=== PATIENT | female | born 1950 | race Caucasian/White ===

== ENCOUNTER 2023-09-17 12:20 | Emergency (ER) | payer MEDICARE, OTHER, SELFPAY ==
[2023-09-17 12:29] VITALS: BP 184/145
[2023-09-17 13:02] VITALS: BP 162/87; BMI 24.1
[2023-09-17 13:32] LABS: % Basophils 0.3 % (0-2); % Eosinophils 0.3 % (0-6); % Immature Granulocytes 0.2 % (0-0.5); % Lymphocytes 15.4 % (20.5-51.1); % Monocytes 9.6 % (1.7-9.3); % Neutrophils 74.2 % (42.2-75.2); Absolute Lymphocytes 0.9 10^3/uL (1.2-3.4); Absolute Monocytes 0.6 10^3/uL (0.1-0.6); Absolute Neutrophils 4.4 10^3/uL (1.4-6.5); Hematocrit 41.5 % (37.0-47.0); Hemoglobin 14.3 g/dL (12.0-16.0); Mean Corp Hgb Conc. 34.5 g/dL (33.0-37.0); Mean Corpuscular Hgb 31.3 pg (27.0-31.0); Mean Corpuscular Volume 90.8 fL (81.0-99.0); Mean Platelet Volume 9.4 fL (7.4-10.4); Nucleated Red Blood Cells % 0 %; Platelet Count 258 10^3/uL (130-400); Red Blood Cell Count 4.57 10^6/uL (4.20-5.40); Red Cell Dist. Width 12.3 % (11.5-14.5); White Blood Cell Count 5.9 10^3/uL (4.8-10.8)
[2023-09-17 13:44] LABS: ALT (SGPT) 22 U/L (0-35); AST (SGOT) 24 U/L (14-36); Albumin 4.9 g/dl (3.5-5.0); Alkaline Phosphatase 95 U/L (38-126); Blood Urea Nitrogen 8 mg/dl (7-17); Calcium 10.4 mg/dl (8.4-10.2); Carbon Dioxide 24 mmol/L (22-30); Chloride 105 mmol/L (98-107); Estimated Creatinine Clearance 70 ml/min; Glucose 107 mg/dl (70-99); Lipase 234 U/L (23-300); Potassium 4.1 mmol/L (3.5-5.1); Sodium 135 mmol/L (135-145); Total Protein 7.9 g/dl (6.3-8.2); eGFR > 60.00
--- NOTE | 2023-09-17 13:49 | ED.GENMED ---
History of Present Illness
General
Chief Complaint: Abdominal Pain
Source: patient
Exam Limitations: none
Time Seen by Provider: 09/17/23 13:04
Nursing documentation reviewed up to this point in time: agreed with
Travel History
Have you had any contact with someone who has COVID-19?: No
Do you have any symptoms of coronavirus? Fever > 100 degrees, chills, cough, shortness of breath, sore throat, loss of taste or smell, muscle aches, or headache?: No
History of Present Illness
History of Present Illness:
Patient is a 72-year-old female who presented to the ER for evaluation of right upper quadrant pain and right back pain. She reports she started with this pain on , 6 days ago. She was hospitalized Friday and discharged Friday, yesterday
at [facility]. She reports they looked at her gallbladder and told her it was mildly distended and she was discharged. While she was in the hospital the night prior to discharge she reports she noticed a rash to the right upper with the
nurse did not think it was shingles. She was not seen by physician for the rash prior to d/c she was however discharged on gabapentin. She has been taking gabapentin 100 g every 12 hours without relief. Today sister noticed that rash is
spreading to the right back. She continues to complain of pain to the right upper abdomen and right back area.
Patient denies any nausea vomiting fever chills. Patient denies any shortness of breath/chest pain.
Review of Systems
Review of Systems
Allergies reviewed?: Yes
All Other Systems: ROS reviewed and negative except as documented in HPI and ROS
Constitutional: Reports no symptoms; Denies fever, fatigue or chills
Respiratory: Reports no symptoms
Cardiac: Reports no symptoms
ABD/GI: Reports abdominal pain (right sided abd pain radiating to right back )
Musculoskeletal: Reports back pain (right sided back pain )
Skin: Reports rash (rash to right abdomen and right back )
Neurological: Reports no symptoms
Psychiatric: Reports no symptoms
Phy Exam
General Physical Exam
General Presentation: no apparent distress
General age: appears stated age
General Skin: warm and dry
General Habitus: normal
General Mental: alert
General Hydration: appears well hydrated
Cardiovascular Exam
Cardiovascular Exam: regular rate/rhythm, no murmur and normal peripheral pulses
Neurological Exam
Neurological Exam: alert
Skin Exam
Skin Exam: normal color, warm/dry and other (Positive scattered red rash to right abd /back, right back has vesicle appearance)
Psychiatric Exam
Psychiatric Exam: normal mood/affect
Course
Orders/Labs/Results
Orders:
Orders
09/17/23 13:17
Complete Blood Count/With Diff Urgent
Comprehensive Metabolic Panel Urgent
Lipase Urgent
09/17/23 13:49
Gabapentin [Neurontin] 300 mg PO NOW STA
Ketorolac [Toradol] 15 mg IV NOW STA
09/17/23 14:20
US Abdomen Complete/Upper Urgent
Comment:
Reason For Exam: upper abd pain
09/17/23 15:59
Lidocaine [Lidocaine 4% Patch] 1 patch TOPICAL NOW STA
Morphine Sulfate 2 mg IV NOW STA
09/17/23 17:39
Tramadol HCl [Ultram] 50 mg PO NOW STA
Valacyclovir HCl [Valtrex] 1,000 mg PO NOW STA
09/17/23 17:41
Vital Signs- Treatment ONCE
Frequency: Once
Abnormal Lab Results
09/17/23
13:17
MCH 31.3 H pg
(27.0-31.0)
Absolute Lymphs (auto) 0.9 L 10^3/uL
(1.2-3.4)
Lymphocytes % 15.4 L %
(20.5-51.1)
Monocytes % 9.6 H %
(1.7-9.3)
Glucose 107 H mg/dl
(70-99)
Calcium 10.4 H mg/dl
(8.4-10.2)
09/17/23 13:17
09/17/23 13:17
Vital Signs
Initial and Last Documented VS:
Initial Vital Signs
Temp Pulse Resp BP Pulse Ox
98.1 F 86 18 184/145 99
09/17/23 12:29 09/17/23 12:29 09/17/23 12:29 09/17/23 12:29 09/17/23 12:29
Last Documented Vital Signs
Temp Pulse Resp BP Pulse Ox
98.1 F 86 18 182/88 99
09/17/23 12:29 09/17/23 12:29 09/17/23 12:29 09/17/23 18:00 09/17/23 18:15
Production Stage Manager consulted with Physician
Production Stage Manager consulted with physician?: Yes
Name of Physician Consulted: shawn
MDM/Problems Addressed
Differential Diagnosis Includes:
Not limited to less likely biliary colic, shingles
MDM/Problems Addressed:
Symptoms are consistent with zoster. Patient was hospitalized at [place] as documented for right upper quadrant pain and right back pain however while they are the night prior to discharge she did develop a rash to her right abdomen. This rash is
visualized by me on her right abdomen and on her back consistent with shingles. She was concerned about a questionable abnormality and distention of her gallbladder on the ultrasound that she had at [place]. I did repeat ultrasound which was
normal here in the ER. She is afebrile with a normal white count stable hemoglobin and normal labs including normal LFTs.
Will prescribe antivirals given patient's age. She was given gabapentin prior to being discharged however has never taken 100 mg every 12 hours which is not I did discuss with patient she may increase to 300 mg as tolerated every 8 hours.
3392:Patient was kept here for discomfort. She was given a dose of IV morphine. On reexam she feels better is not sleepy. She is awake alert in no acute distress but still reports still has discomfort .
Son at bedside to take pt home.
will give 1 dose of tramadol now and 1 dose of Valtrex with prescription sent to pharmacy. I discussed with patient however to closely follow family doctor in the next 2 days for reevaluation and to return if any worsening of symptoms.
Patient educated on gabapentin she may increase this and she is only to take tramadol if needed
Chronic conditions affecting care:
htn
*Radiology
Radiology exam reviewed: radiology read reviewed
*Pulse Oximetry
Patient hypoxic: no
*Critical Care Note
Total Time (30-74mins, 75-104mins- exclusive of procedures): Not Applicable
ED Attending Note
-
Portions of this chart may have been created with voice recognition software.� Occasional wrong word or��sound alike� substitutions may have occurred due to the inherent limitations of voice recognition software.
Discharge Plan
Departure
Patient Disposition: Home (Routine Discharge)
Date of Disposition: 09/17/23
Time of Disposition: 17:41
Patient with high blood pressure during this ER visit?: Yes
Condition: Fair
Covid-19: Not Applicable
Discharge Problem:
Herpes zoster
Instructions: Shingles (DC)
Prescriptions:
New
valacyclovir [Valtrex] 1 gram tablet
1,000 mg PO TID Qty: 30 0RF
lidocaine 5 % adhesive patch,medicated
1 patch topical DAILY Qty: 15 0RF
Rx Instructions:
Remove after 12 hours
tramadol 50 mg tablet
50 mg PO Q8H PRN (Reason: Pain) Qty: 10 0RF
Referrals:
NONE,* [Active] -
Activity Restrictions/Additional Instructions:
As discussed your symptoms are consistent with shingles. You were started on valacyclovir (antiviral to treat shingles )and given first dose here in the ER.
As discussed you may slowly increase the gabapentin as tolerated to up to 300 mg every 8 hours as needed. This will cause drowsiness no driving or drinking alcohol while taking this medication. A prescription for lidocaine patch was also sent to
your pharmacy. use as directed to affected area once a day remove after 12 hours. You may take pain medication which was sent to pharmacy as needed. Please follow-up with the next 1 to 2 days for further reevaluation return if any worse including
worsening pain.
Interventions
Interventions:
*Risk Screen - Suicide Last Done: 09/17/23 12:29
*General Assessment Last Done: 09/17/23 13:02
*Neglect/Abuse Screening Last Done: 09/17/23 12:29
ED- Fall Risk Assessment Last Done: 09/17/23 13:02
*ED COVID-19 Vaccine History Last Done: 09/17/23 12:29
*Nursing Disposition Last Done: 09/17/23 18:40
QV-Cbynbm-Crsiwpimvz Assessment Last Done: 09/17/23 13:02
Discharge Date and Time
Discharge Date/Time: 09/17/23 18:41
Print Language: SLOVENIAN
[2023-09-17] MEDS: TORADOL 15 MG IV (13:59)
[2023-09-17] MEDS: NEURONTIN 300 MG PO (13:59)
[2023-09-17 14:00] VITALS: BP 180/88
[2023-09-17 16:00] VITALS: BP 182/86
[2023-09-17] MEDS: LIDOCAINE 4% PATCH 1 PATCH TOPICAL (16:04)
[2023-09-17] MEDS: MORPHINE SULFATE 2 MG IV (16:06)
[2023-09-17 18:00] VITALS: BP 182/88
[2023-09-17] MEDS: ULTRAM 50 MG PO (18:26)
[2023-09-17] MEDS: VALTREX 1000 MG PO (18:26)
== END 2023-09-17 18:41 | disposition home or self-care (01) ==
LOC: EMR 12:20
PROVIDERS: EMERGENCY PHYSICIAN Emergency Medicine; FAMILY PHYSICIAN Family Medicine Sports Medicine
DX: B02.9 Zoster without complications (principal); I10 Essential (primary) hypertension
CPT/HCPCS: 99284; 96374; 76700; 80053; 83690; 85025

== ENCOUNTER 2024-06-22 14:42 | Inpatient (IN) | payer MEDICARE, OTHER, SELFPAY ==
[2024-06-22] VITALS (7 sets, daily range): BP systolic 106–182; BP diastolic 67–91; BMI 24.2; BMI 23.8
[2024-06-22 09:28] LABS: % Eosinophils 1.2 % (0-6); % Immature Granulocytes 0.2 % (0-0.5); % Lymphocytes 26.2 % (20.5-51.1); % Monocytes 7.2 % (1.7-9.3); % Neutrophils 64.2 % (42.2-75.2); Absolute Basophils 0.1 10^3/uL (0-0.2); Absolute Eosinophils 0.1 10^3/uL (0-0.7); Absolute Lymphocytes 1.3 10^3/uL (1.2-3.4); Absolute Monocytes 0.4 10^3/uL (0.1-0.6); Absolute Neutrophils 3.3 10^3/uL (1.4-6.5); Hemoglobin 14.1 g/dL (12.0-16.0); Mean Corp Hgb Conc. 34.4 g/dL (33.0-37.0); Mean Corpuscular Hgb 30.8 pg (27.0-31.0); Mean Corpuscular Volume 89.5 fL (81.0-99.0); Mean Platelet Volume 9.3 fL (7.4-10.4); Nucleated Red Blood Cells % 0 %; Platelet Count 265 10^3/uL (130-400); Red Blood Cell Count 4.58 10^6/uL (4.20-5.40); Red Cell Dist. Width 11.9 % (11.5-14.5); White Blood Cell Count 5.1 10^3/uL (4.8-10.8)
[2024-06-22 09:49] LABS: ALT (SGPT) 26 U/L (0-35); AST (SGOT) 25 U/L (14-36); Albumin 4.6 g/dl (3.5-5.0); Alkaline Phosphatase 95 U/L (38-126); Blood Urea Nitrogen 10 mg/dl (7-17); Calcium 9.9 mg/dl (8.4-10.2); Carbon Dioxide 28 mmol/L (22-30); Chloride 105 mmol/L (98-107); Glucose 97 mg/dl (70-99); Lipase 133 U/L (23-300); Potassium 3.9 mmol/L (3.5-5.1); Sodium 141 mmol/L (135-145); Total Bilirubin 0.7 mg/dl (0.2-1.3); Total Protein 7.3 g/dl (6.3-8.2); eGFR > 60.00
--- NOTE | 2024-06-22 10:19 | ED.GENMED ---
History of Present Illness
General
Chief Complaint: Abdominal Pain
Source: patient
Time Seen by Provider: 06/22/24 10:02
History of Present Illness
History of Present Illness:
73-year-old female with past medical history of hypertension and 2 previous episodes of pancreatitis presenting to the emergency department for evaluation of epigastric and right upper quadrant abdominal pain that began over the course of 1 week,
waxes and wanes, seems to be improved when she is up and moving, worse when laying flat or laying on her left side accompanied with some mild nausea. Patient states that the pain does feel somewhat similar to previous episodes of pancreatitis which
she states are due to a duct anatomical issue but no procedures or treatments other than pain control in the past. Patient denies any fevers, chills, rigors, urinary symptoms or bowel changes. She also denies any chest pain or shortness of breath.
Patient has not attempted any medications for relief at home. No other concerns presently
Past History
Past History
ED Past Medical History: HTN and Other (Pancreatitis)
ED Past Surgical History: Tonsilectomy
Social History
Tobacco: Non-smoker
Alcohol: None
Drug: None
Personal:
Living: with family
Review of Systems
Review of Systems
All Other Systems: ROS reviewed and negative except as documented in HPI and ROS
Phy Exam
Physical Exam
Physical Exam:
GENERAL: Alert , in no apparent distress
EYE: clear conjunctiva b/l
HEAD: NCAT
ENT: o/p clr, mmm.
CARDIAC: Regular rate and rhythm .
LUNGS: Clear breath sounds bilaterally, no acute respiratory distress, no wheezes/rales/rhonchi
ABDOMEN: Soft, epigastric and right upper quadrant tenderness that radiates towards the right flank, no r/g
NEUROLOGICAL: Alert and oriented
SKIN: Warm and dry, skin intact.
MUSCULOSKELETAL: No edema, well perfused.
PSYCH: Normal and appropriate interaction.
Scores
Heart Failure Risk
Heart Failure Risk Score: Not Applicable
Heart Score for Chest Pain Patients
STEMI patient?: Not applicable
Withdrawal Assessment of Alcohol
Withdrawal Assessment Completed?: Not applicable
Course
Orders/Labs/Results
Orders:
Orders
06/22/24 09:01
Electrocardiogram (*1) Urgent
Reason for Study: Abdominal Pain
EKG- Treatment ONCE
06/22/24 09:08
Complete Blood Count/With Diff Urgent
Comprehensive Metabolic Panel Urgent
Lipase Urgent
06/22/24 10:16
CT Abd/pelvis W Iv Cont Urgent
Comment:
Reason For Exam: upper abd pain, nausea
Ketorolac [Toradol] 30 mg IV NOW STA
Ondansetron Injectable [Zofran] 4 mg IV NOW STA
06/22/24 10:20
Add On- LAB Urgent
Tests Added?: troponin
06/22/24 11:28
Troponin I Urgent
Urinalysis Reflex To Culture Urgent
Date Specimen was Collected: 06/22/24
Time Specimen was Collected: 11:26
Urine Microscopic Reflex Cult Urgent
Urine Culture Urgent
ISAI Source: U
Specimen Description:
Date Specimen was Collected: 06/22/24
Time Specimen was Collected: 11:26
06/22/24 13:08
HYDROmorphone [Dilaudid] 0.5 mg IV NOW STA
Ondansetron Injectable [Zofran] 4 mg .ROUTE .STK-MED ONE
Ondansetron Injectable [Zofran] 4 mg IV NOW STA
06/22/24 13:09
HYDROmorphone [Dilaudid] 0.5 mg .ROUTE .STK-MED ONE
06/22/24 14:05
HYDROmorphone [Dilaudid] 0.5 mg IV NOW STA
US Abdomen Complete/Upper Urgent
Comment:
Reason For Exam: upper abd pain
06/22/24 14:07
CefTRIAXone [Rocephin] 1,000 mg IV NOW STA
06/22/24 14:21
Admit/Transfer Patient As Directed
Co-Sign Provider:
Level of Care: Inpatient admission
Assign to:: Medical/Surgical
Physician / Group: samantha alberto
Diagnosis: abdominal pain
Reason for Hospitalization: abdominal pain
Expected length of stay greater than two midnights?: Yes
ELOS- Estimated Length of Stay in days: 3
I certify the patient meets the requirements for IP care: Yes
PRN Pain Medication Management As Directed
May give lesser potent ordered pain med per pt: Yes
preference::
Protocol:: Medication orders for pain may be administered in a
manner that supports deferring to patient preference
when the pt is:
- Requesting an ordered lesser potent pain medication.
Least to most potent pain medications are defined
as: acetaminophen < NSAID < tramadol < opioids
(morphine, oxycodone, hydromorphone).
- Requesting a lesser dose of the same medication IF
ORDERED.
- Requesting a less intrusive route of administration
if both routes are prescribed by the provider (PO <
IV).
06/22/24 14:22
Code Status As Directed
Resuscitation Status: Full Code
06/22/24 14:39
Sterile Water [Sterile Water For Injection] 10 ml .ROUTE .STK-MED ONE
Abnormal Lab Results
06/22/24
11:28
Ur Occult Blood Reflex Trace A
(Negative)
Leukocyte Esterase Rfl 1+ A
(Negative)
Urine WBC (Reflex) 11-15 A /HPF
(0-5)
Urine Bacteria (Reflex) Few A
(Negative)
06/22/24 09:08
06/22/24 09:08
Vital Signs
Initial and Last Documented VS:
Initial Vital Signs
Temp Pulse Resp BP Pulse Ox
98.3 F 73 16 144/89 98
06/22/24 08:55 06/22/24 08:55 06/22/24 08:55 06/22/24 08:55 06/22/24 08:55
Last Documented Vital Signs
Temp Pulse Resp BP Pulse Ox
98.3 F 65 16 182/82 95
06/22/24 08:55 06/22/24 15:00 06/22/24 15:00 06/22/24 15:00 06/22/24 15:00
MDM/Problems Addressed
Differential Diagnosis Includes:
GERD/gastritis, pancreatitis, cholecystitis, choledocholithiasis, renal/ureteral colic, atypical ACS presentation, muscular etiology
MDM/Problems Addressed:
73-year-old female presenting to the ER with 1 week of epigastric to right upper quadrant abdominal pain, unchanged today however not improving. Feels similar to previous episodes of pancreatitis. Pain pretty clearly reproducible within the
epigastrium and right upper quadrant. Labs have been initiated upon arrival which are all reassuring. Normal liver function tests and lipase. No leukocytosis. Patient is afebrile. Patient had an ultrasound of her abdomen done in September 2023
which did not show any abnormalities, no stones within the gallbladder and a normal common bile duct. My suspicion for gallbladder pathology is quite low given this recent ultrasound study combined with patient's unremarkable labs. Will obtain a
CT scan for further evaluation. Toradol and Zofran ordered for symptomatic relief. Reassessment following
Chronic conditions affecting care: Other (To previous episodes of pancreatitis)
*Radiology
Radiology exam reviewed: radiology read reviewed
*Pulse Oximetry
Patient hypoxic: no
*Critical Care Note
Total Time (30-74mins, 75-104mins- exclusive of procedures): Not Applicable
Data Reviewed
Review of Other/Old Records Reveals: Labs, Records and Radiology Studies
Patient Management
Discussion with other providers: Hospitalist
Escalation/DeEscalation of care consider admission/obs:
Patient's urinalysis with 11-15 WBCs and 1+ leukocyte. Urine culture sent. Will likely treat for UTI. CT scan appears without any acute findings. There is noted fatty liver and possible minimal hepatic cirrhosis. Gallbladder distention without
any wall thickening or pericholecystic inflammatory changes. Diffuse pancreatic ductal dilatation. Other chronic findings discussed with patient and printout of report was given to the patient as well. I still question possible chronic
pancreatitis as potential cause for her pain. Patient did note some improvement of pain with Toradol down to a 6 however pain returning and back now to a 9 out of 10. Half milligram of Dilaudid and additional Zofran ordered for symptomatic relief.
Reassessment following.
Despite Dilaudid patient still with considerable pain and does not feel comfortable to be discharged home. Additional dose of Dilaudid ordered. IV Rocephin ordered for possible urinary tract infection. Will admit to hospitalist for further
evaluation and treatment of intractable abdominal pain.
ED Attending Note
-
Portions of this chart may have been created with voice recognition software.� Occasional wrong word or��sound alike� substitutions may have occurred due to the inherent limitations of voice recognition software.
Discharge Plan
Departure
Patient Disposition: Admit
Date of Disposition: 06/22/24
Time of Disposition: 14:07
Presentation/result/management discussed w/ accepting MD/DO: Hospitalist
Discharge Problem:
Chronic pancreatitis, Abdominal pain, UTI (urinary tract infection)
Interventions
Interventions:
*Risk Screen - Suicide Last Done: 06/22/24 08:55
*Neglect/Abuse Screening Last Done: 06/22/24 08:55
QM-Swfuth-Dxggyotlim Assessment Last Done: 06/22/24 11:30
[2024-06-22] MEDS: TORADOL 30 MG IV (11:20)
[2024-06-22] MEDS: ZOFRAN 4 MG IV ×3 (11:20→17:47)
[2024-06-22 11:35] LABS: Urine Albumin Trace (Neg - Trace); Urine Bilirubin Negative (Negative); Urine Character Clear (Clear); Urine Color Yellow; Urine Glucose Negative (Negative); Urine Ketone Negative (Negative); Urine Leukocyte 1+ (Negative); Urine Nitrite Negative (Negative); Urine Occult Blood Trace (Negative); Urine Specific Gravity 1.025 (<1.030); Urine Urobilinogen Negative (Neg - 1+)
[2024-06-22 11:51] LABS: Urine Mucus Moderate
[2024-06-22 11:52] LABS: Urine Bacteria Few (Negative); Urine Calcium Oxalate Crystals Present; Urine Red Blood Cell 0-2 /HPF (0-2)
[2024-06-22 12:02] LABS: Troponin I < 0.012 ng/ml
[2024-06-22] MEDS: DILAUDID 0.5 MG IV ×2 (13:12→14:44)
--- NOTE | 2024-06-22 14:08 | HPS.HSE ---
Addendum entered and electronically signed by Herber Rose MD 06/22/24 18:55:
As per ACCESS TECH, surgery requests initial eval with GI prior to consulting them
Addendum entered and electronically signed by Herber Rose MD 06/22/24 18:50:
Pain, usually exacerbated by dietary, has been ongoing for 6 months. Was evaluated at [facility] with plan for HIDA scan, but was cancelled for unclear reasons and pt was dc. Has continued to have RUQ pain, as per pt has been virtually unable to eat
since 06/09
Pt seen independently and agree with note by ACCESS TECH
Lungs clear
CV reg
Abd soft, tender [place]
GB US: New pancreatic ductal dilatation. Etiology unknown. Nonurgent MRCP recommended when the patient is able. The patient is scheduled for a HIDA scan.
Lipase 133
Imp:recurrent abd pain with concern for acalculous cholecystitis
P:GI and Gen Surg consults
HIDA scan (?with [facility])
Original Note:
Family Physician
-
Family Physician: Luis Fernando Jeong
Chief Complaint
-
right upper quadrant pain
History of Present Illness
73-year-old female with past medical history of hypertension and 2 previous episodes of pancreatitis presenting to the emergency department for evaluation of epigastric and right upper quadrant abdominal pain that began for more than a week. waxes
and wanes, seems to be improved when she is up and moving, worse when laying flat or laying on her left side accompanied with some mild nausea. patient denied any vomiting or diarrhea. stated poor appetite for more than a week. denied fever. stated
chills. denied chest pain, sob. denied dysuria or hematuria.
CT with the impression of 1. Mild diffuse hepatic steatosis, mild diffuse intrahepatic biliary dilatation, and suspected minimal hepatic cirrhosis.
2. Gallbladder distention without wall thickening or pericholecystic inflammation.
3. Mild diffuse pancreatic ductal dilatation.
4. Multiple bilateral parapelvic renal cysts.
5. Moderate to severe diverticulosis in the sigmoid colon.
6. Moderate-sized cystocele.
7. Mild cardiomegaly.
8. 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
patient received ceftriaxone, Dilaudid, Toradol, Zofran in ER. admitting for further management.
Medical History
Past Medical History
Past Medical History: Reports None
Additional Past Medical History:
HTN
pancreatitis
Past Surgical History: Reports None
Social History
Tobacco: Non-smoker
Alcohol: None
Drug: None
Family History
Family History: Not pertinent
Allergies / Home Medications
Allergies reflects when Allergies were last updated in [facility].
Home Medications with original date entered in [facility]
Allergy/Medication List:
Allergies
Allergy/AdvReac Type Severity Reaction Status Date / Time
azilsartan Allergy Mild Rash Verified 06/22/24 08:54
cortisone Allergy Mild Unknown Verified 06/22/24 08:54
glutamine [From Endari] Allergy Mild Unknown Verified 06/22/24 08:54
latex Allergy Mild Unknown Verified 06/22/24 08:54
nebivolol Allergy Mild Nausea / Verified 06/22/24 08:54
Vomiting
sulfamethoxazole Allergy Mild Nausea / Verified 06/22/24 08:54
[From Bactrim] Vomiting
trimethoprim [From Bactrim] Allergy Mild Nausea / Verified 06/22/24 08:54
Vomiting
amoxicillin Allergy Rash Verified 06/22/24 08:54
Review of Systems
-
Constitutional: Reports No Symptoms
EENT: Reports No Symptoms
Respiratory: Reports No Symptoms
Cardiac: Reports No Symptoms
Abdomen/GI: Reports Abdominal Pain and Nausea
: Reports No Symptoms
Musculoskeletal: Reports No Symptoms
Skin: Reports No Symptoms
Neurological: Reports No Symptoms
Endocrine: Reports No Symptoms
Hematologic/Lymphatic: Reports No Symptoms
Psych: Reports No Symptoms
Physical Exam
Vital Signs
Vital Signs
Temp Pulse Resp BP Pulse Ox
98.3 F 76 19 176/80 98
06/22/24 08:55 06/22/24 13:15 06/22/24 13:15 06/22/24 13:04 06/22/24 13:15
Physical Exam
General: Well Developed, Well Nourished and No Apparent Distress
HEENT: NormoCephalic, Moist mucous membranes and Atraumatic
Respiratory: Clear
Cardiac: S1/S2 and Regular Rhythm; No Murmur or Rub
GI: Soft, Non Tender, Non Distended and Normal Bowel Sounds; No Organomegaly
Rectal: Deferred by Provider
Musculoskeletal: No Clubbing, No Cyanosis and No Edema
Skin: No Rash
Neuro: AO x 3 and Nonfocal/grossly intact
Psych: Calm
Laboratory Results
-
06/22/24 09:08
06/22/24 09:08
Laboratory Results
Total Bilirubin 0.7 mg/dl (0.2-1.3) 06/22/24 09:08
AST 25 U/L (14-36) 06/22/24 09:08
ALT 26 U/L (0-35) 06/22/24 09:08
Alkaline Phosphatase 95 U/L (38-126) 06/22/24 09:08
Troponin I < 0.012 ng/ml 06/22/24 11:28
Lipase 133 U/L (23-300) 06/22/24 09:08
Data Reviewed
-
CT Scan: Report Reviewed by me
Lab Data: Labs Reviewed by me
Impression/Plan
-
#intractable abdominal pain concern for calculous cholecystitis
#chronic pancreatitis
-CT with the impression of Mild diffuse hepatic steatosis, mild diffuse intrahepatic biliary dilatation, and suspected minimal hepatic cirrhosis.
2. Gallbladder distention without wall thickening or pericholecystic inflammation.
3. Mild diffuse pancreatic ductal dilatation.
4. Multiple bilateral parapelvic renal cysts.
5. Moderate to severe diverticulosis in the sigmoid colon.
6. Moderate-sized cystocele.
7. Mild cardiomegaly.
8. 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
-US of abdomen pending
-HIDA scan
-clear liquid diet
-Dilaudid and Zofran prn for pain,nausea
-Gi consulted
#essential HTn
-verapamil continued
#DVT prophylaxis
#CODE status
[2024-06-22] MEDS: ROCEPHIN 1000 MG IV (14:44)
--- NOTE | 2024-06-22 16:30 | CON.GI ---
Addendum entered and electronically signed by Antonia Warren MD 06/22/24 18:52:
I saw and examined the patient.
The RN DELIVERY or PA's note was reviewed and I agree with the note.
Comment: 73-year-old female with history of shingles, history of recurrent pancreatitis episodes who follows up with Dr. Garsia at [facility] presenting with right upper quadrant discomfort going on for the last several days. She has chronic right
upper quadrant discomfort, follows at [facility] and has had multiple tests as per patient without any particular etiology noted. She was supposed to have the HIDA scan but that was canceled subsequently. She reports the pain is dull discomfort in
the right upper quadrant, could be exacerbated after food, has been having nausea with this particular episode but not on regular basis. No trouble swallowing. No heartburn. No constipation, diarrhea, blood in the stool or black stool. No NSAID
use.
In the ER, CMP and CBC and lipase were within normal range.
Abdominal ultrasound showing mild pancreatic ductal dilation, CT scan of the abdomen and pelvis with IV contrast only showing mild diffuse hepatic steatosis ,mild diffuse intrahepatic ductal dilation, gallbladder distention without any wall
thickening. Mild to diffuse pancreatic ductal dilation, diverticulosis, moderate left periuterine and periadnexal varices. Moderate fecal material noted in the cecum and proximal ascending colon.
As per patient's son, she was told that she has pancreatic divisum on EUS that could have caused the pancreatitis and the last episode of pancreatitis was August 2023 and nothing since. They are not aware of any other findings on the endoscopy
ultrasound other than the pancreatic divisum,.
He reports having colonoscopy at [facility] 5 years ago unremarkable as per patient.
-Right upper quadrant abdominal discomfort of unclear etiology. Chronic and intermittent,
Normal LFTs and lipase and no evidence of acute cholecystitis or pancreatitis on imaging.
no reflux symptoms to suggest acid reflux or ulcer disease
She is due to get a HIDA scan which is scheduled for tomorrow. Will follow-up on that.
Patient does have some moderate amount of stool in the cecum and right colon, she reports that she does not feel constipated and refuses to believe that that is causing any of the abdominal discomfort.
-History of pancreatic divisum and pancreatitis
no evidence of pancreatitis on imaging and lipase is within normal range.
Mild pancreatic duct and bile duct dilation noted on imaging, she did have endoscopy ultrasound with Dr. Matty Garsia at [facility] about 6 months ago and the only positive finding was a pancreatic divisum.
She is scheduled for an MRI with contrast at [facility] in a month, suggested keeping up with that appointment.
Will follow-up on the above testing
Original Note:
Consultation
-
Date/Time Consultation Requested: 06/22/24 1600
Date/Time Consultation Performed: 06/22/24 161
Requesting Provider: Dr. Rose
Performing Provider: Dr. Warren/SARAVANAN Sanchez
Reason for Consultation: RUQ pain
Medical History
Chief Complaint / HPI
Chief Complaint: RUQ pain
History of Present Illness:
73-year-old female with past medical history hypertension, pancreatitis followed by Dr. 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
intermittent right-sided abdominal discomfort followed by GI at [facility] who presents to the emergency room with right upper quadrant pain that she states is dull, intermittent, lying on her left side can provoke this, she is able to eat and drink,
no vomiting. When the pain becomes really bad she can sometimes have some nausea. She denies any fevers, chills, melena, acholic stools, bilirubinuria, dysphagia or odynophagia. No early satiety or unintentional weight loss. She does not smoke.
She does not drink any alcohol. She does not take any NSAIDs. She has routine EGD and colonoscopies. She states she is due for her next colonoscopy in 2 years. She does have a history of colon polyps. She states she is due for an MRI next
month. She is weaning herself off of gabapentin for history of neuropathic pain from shingles diagnosed in September 2023. This was in the right upper quadrant and right flank area. She was also on tramadol prior. She is currently off of this as
well. She does state that she was sent for a second opinion at [facility] for her intermittent right upper quadrant discomfort by Brooke LAWRENCE. She states that this pain is different from her pancreatitis pain but somewhat similar, different from
her shingles pain. WBC 5.1, hemoglobin 14.1, hematocrit 41.0, platelets 265, sodium 141, potassium 3.1, chloride 105, CO2 28, BUN 10, creatinine 0.7, glucose 97, total bilirubin 0.7, AST 25, ALT 26, alk phos 95
Past Medical History
Past Medical History: HTN and Other (Pancreatitis, colon polyp, shingles)
Past Surgical History: Other (Endoscopic ultrasound)
Social History
Tobacco: Non-Smoker
Alcohol: None
Drug: None
Family History
Family History: Other (Father history of gastric cancer, no other family history of gastrointestinal malignancies)
Allergies / Home Medications
Allergy/AdvReac Type Severity Reaction Status Date / Time
azilsartan Allergy Mild Rash Verified 06/22/24 08:54
cortisone Allergy Mild Unknown Verified 06/22/24 08:54
glutamine [From Endari] Allergy Mild Unknown Verified 06/22/24 08:54
latex Allergy Mild Unknown Verified 06/22/24 08:54
nebivolol Allergy Mild Nausea / Verified 06/22/24 08:54
Vomiting
sulfamethoxazole Allergy Mild Nausea / Verified 06/22/24 08:54
[From Bactrim] Vomiting
trimethoprim [From Bactrim] Allergy Mild Nausea / Verified 06/22/24 08:54
Vomiting
amoxicillin Allergy Rash Verified 06/22/24 08:54
�Medication �Instructions �Recorded
cholecalciferol (vitamin D3) 25 25 mcg PO DAILY 06/22/24
mcg (1,000 unit) tablet (Vitamin
D3)
gabapentin 100 mg capsule 200 mg PO HS 06/22/24
verapamil 240 mg tablet,extended 240 mg PO HS 06/22/24
release
vitamin B complex 1 tab PO DAILY 06/22/24
Review of Systems
-
All other systems: A 12 pt ROS was Negative except as stated above in HPI
Vital Signs
Temp Pulse Resp BP Pulse Ox
98.3 F 65 16 182/82 95
06/22/24 08:55 06/22/24 15:00 06/22/24 15:00 06/22/24 15:00 06/22/24 15:00
Physical Exam
Exam
General: No Apparent Distress
HEENT: Anicteric
Respiratory: Clear
Cardiac: Regular Rhythm
GI: Soft, Non Tender, Non Distended and Normal Bowel Sounds
Skin: Warm
Neuro: AO x 3
Psych: Calm
Results
WBC 5.1 10^3/uL (4.8-10.8) 06/22/24 09:08
Hgb 14.1 g/dL (12.0-16.0) 06/22/24 09:08
Hct 41.0 % (37.0-47.0) 06/22/24 09:08
MCV 89.5 fL (81.0-99.0) 06/22/24 09:08
Plt Count 265 10^3/uL (130-400) 06/22/24 09:08
Absolute Neuts (auto) 3.3 10^3/uL (1.4-6.5) 06/22/24 09:08
Sodium 141 mmol/L (135-145) 06/22/24 09:08
Potassium 3.9 mmol/L (3.5-5.1) 06/22/24 09:08
Chloride 105 mmol/L (98-107) 06/22/24 09:08
Carbon Dioxide 28 mmol/L (22-30) 06/22/24 09:08
BUN 10 mg/dl (7-17) 06/22/24 09:08
Creatinine 0.7 mg/dL (0.6-1.0) 06/22/24 09:08
Calcium 9.9 mg/dl (8.4-10.2) 06/22/24 09:08
Total Bilirubin 0.7 mg/dl (0.2-1.3) 06/22/24 09:08
AST 25 U/L (14-36) 06/22/24 09:08
ALT 26 U/L (0-35) 06/22/24 09:08
Alkaline Phosphatase 95 U/L (38-126) 06/22/24 09:08
Lipase 133 U/L (23-300) 06/22/24 09:08
Diagnostic Image Results:
Ultrasound abdomen:
IMPRESSION:
New pancreatic ductal dilatation. Etiology unknown. Nonurgent MRCP recommended when the patient is able. The patient is scheduled for a HIDA scan.
Simple bilateral renal cysts. New.
CT abdomen pelvis with IV contrast:
IMPRESSION:
1. Mild diffuse hepatic steatosis, mild diffuse intrahepatic biliary dilatation, and suspected minimal hepatic cirrhosis.
2. Gallbladder distention without wall thickening or pericholecystic inflammation.
3. Mild diffuse pancreatic ductal dilatation.
4. Multiple bilateral parapelvic renal cysts.
5. Moderate to severe diverticulosis in the sigmoid colon.
6. Moderate-sized cystocele.
7. Mild cardiomegaly.
8. 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
Prior GI Procedures:
EGD: Patient states had EGD/EUS in January 2024 at [facility] with records unavailable to me.
Colonoscopy: At [facility]. States was approximately 5 years ago. States that she is due in 2 years. States she had a history of colon polyps. Records unavailable to me
Assessment / Plan
-
73-year-old female with past medical history hypertension, pancreatitis followed by Dr. 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
intermittent right-sided abdominal discomfort followed by GI at [facility] who presents to the emergency room with right upper quadrant pain that she states is dull, intermittent, lying on her left side can provoke this, she is able to eat and drink,
no vomiting. When the pain becomes really bad she can sometimes have some nausea. She denies any fevers, chills, melena, acholic stools, bilirubinuria, dysphagia or odynophagia. No early satiety or unintentional weight loss. Labs WNL. Lipase
normal.
Impression:
Right upper quadrant pain, intermittent
Pancreatic ductal dilatation (patient with known history of pancreatitis/pancreatic ductal issues) follows with Dr. Garsia
History of pancreatitis x 2, secondary to' anatomical issues' per patient
Gallbladder distention without wall thickening or pericholecystic inflammation
Diffuse hepatic steatosis /possible cirrhosis on imaging (CT)
Moderate left periuterine and periadnexal varices
Plan:
-Surgical consult pending
-HIDA scan ordered
-Trend labs
-Patient states she has MRI scheduled at [facility] next month.
-Recommend bowel regimen as there is stool in right colon and rectum.
-Further recommendations to be forthcoming.
-Follow up with [facility] and Dr. Garsia at [facility].
-
-
Thank you for consultation and allowing me to participate in the patient's care. Please call the educational technology coordinator GI physician during the after hours with any questions or concerns.
[2024-06-22] MEDS: LOVENOX 40 MG SC (17:46)
--- NOTE | 2024-06-22 17:54 | PTCARENOTE ---
Pt admitted from ED awake alert and oriented x3. pt c/o nausea. LCTA on RA. abd is soft, tender hypoactive bowel sounds. cont b&B. skin CDI, No edema +PP B/L. CB in reach. pt oriented to surroundings.
[2024-06-22] MEDS: NEURONTIN 200 MG PO (21:14)
[2024-06-22] MEDS: CALAN EXTENDED RELEASE 240 MG PO (21:14)
[2024-06-22] MEDS: ULTRAM 100 MG PO (21:32)
[2024-06-22 22:36] LABS: Glucose - Point of Care 111 mg/dl (70-99)
[2024-06-23] MEDS: ZOFRAN 4 MG IV ×2 (07:32→16:14)
[2024-06-23] MEDS: FLUSH (NSS) 2 FLUSH IV ×2 (07:33→16:15)
[2024-06-23 07:45] VITALS: BP 142/73
[2024-06-23 10:09] VITALS: BP 148/66
--- NOTE | 2024-06-23 10:10 | PTCARENOTE ---
rec'd order from Dr. Cardozo for Morphine 2mg for hida scan. patient identified using two identifiers. confirmed allergies. left AC INT flushed without issue. vital signs charted. Morphine 2mg iv given via left INT. no issues noted immediately post.
--- NOTE | 2024-06-23 13:30 | W.PN.HOSP.TC ---
Today's Communication/Plan
-
continue Clear Liquids, await input from GI
Assessment / Plan
Assessment / Plan
#intractable abdominal pain concern for calculous cholecystitis
#chronic pancreatitis
-CT with the impression of Mild diffuse hepatic steatosis, mild diffuse intrahepatic biliary dilatation, and suspected minimal hepatic cirrhosis.
2. Gallbladder distention without wall thickening or pericholecystic inflammation.
3. Mild diffuse pancreatic ductal dilatation.
4. Multiple bilateral parapelvic renal cysts.
5. Moderate to severe diverticulosis in the sigmoid colon.
6. Moderate-sized cystocele.
7. Mild cardiomegaly.
8. 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
-US of abdomen: New pancreatic ductal dilatation. Etiology unknown. Nonurgent MRCP recommended when the patient is able. The patient is scheduled for a HIDA scan.
Simple bilateral renal cysts. New
-HIDA scan: No evidence for cystic duct or common bile duct obstruction.
-clear liquid diet, advance diet when cleared by GI
-Dilaudid and Zofran prn for pain,nausea
-Gi consulted
apparently HIDA with CCK not done as inpt and was unable to order. HIDA was done without
await input from GI as to next step
#essential HTn
-verapamil continued
#DVT prophylaxis
#CODE status full code
Anticipated Discharge: > 48 hours
Subjective/Interval History
-
Date of Service: June 23, 2024
Still with abd pain, though less intense
Objective Data
-
Vital Signs:
Vital Signs
Temp Pulse Resp BP Pulse Ox
97.4 F 57 17 148/66 99
06/23/24 07:45 06/23/24 10:09 06/23/24 07:45 06/23/24 10:09 06/23/24 07:45
I&O
06/22/24 06/23/24 06/24/24
06:59 06:59 06:59
Intake Total 1200 / 1200
Balance 1200 / 1200
Review of Systems
-
History Source: Patient and Family (reviewed with son by phone)
Constitutional: Denies Fever
Respiratory: Reports No Symptoms
Cardiac: Reports No Symptoms
Abdomen/GI: Reports Abdominal Pain (RUQ)
Physical Exam
-
General: Well Developed, Well Nourished and No Apparent Distress
HEENT: Normocephalic, Atraumatic and Moist Mucous Membranes
Respiratory: Clear to Auscultation; Negative Wheezes, Rales or Rhonchi
Cardiac: Regular Rhythm and S1/S2
GI: Soft and Tender ([place])
Skin: Warm and Dry
Neuro: Awake, Alert and Oriented
--- NOTE | 2024-06-23 14:42 | W.PN.GI.CBS2 ---
Addendum entered and electronically signed by Antonia Warren MD 06/23/24 16:05:
Agree with [facility] for moderate stool in the right colon.
Addendum entered and electronically signed by Antonia Warren MD 06/23/24 16:05:
I saw and examined the patient.
The ELECTRIC POWER SUPERINTENDENT or PA's note was reviewed and I agree with the note.
Comment: Patient reports nausea and ongoing dull discomfort in the right upper quadrant.
HIDA scan negative.
Upper endoscopy at [facility] 6 months ago unremarkable as per patient.
CMP, CBC and lipase in normal range, abdominal ultrasound and CT essentially unremarkable as well.
Okay to give Zofran as needed. Will add PPI.
Agree with low-fat diet.
Follow-up with Dr. Garsia at [facility] and also has an MRI in a month.
Continue to follow-up with [facility] as outpatient.
Original Note:
Today's Communication / Plan
-
as per plan
advance to low fat diet
Assessment / Plan
-
73-year-old female with past medical history hypertension, pancreatitis followed by Dr. 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
intermittent right-sided abdominal discomfort followed by GI at [facility] who presents to the emergency room with right upper quadrant pain that she states is dull, intermittent, lying on her left side can provoke this, she is able to eat and drink,
no vomiting. When the pain becomes really bad she can sometimes have some nausea. She denies any fevers, chills, melena, acholic stools, bilirubinuria, dysphagia or odynophagia. No early satiety or unintentional weight loss. Labs WNL. Lipase
normal.
HIDA Scan:
IMPRESSION: No evidence for cystic duct or common bile duct obstruction
Impression:
Right upper quadrant pain, intermittent and chronic
Pancreatic ductal dilatation, known Pancreatic divisum follows with Dr. Garsia
History of pancreatitis x 2, secondary to pancreatic divisum. Last episode August 2023
Gallbladder distention without wall thickening or pericholecystic inflammation-> HIDA scan without cystic duct or common bile duct obstruction.
Diffuse hepatic steatosis /possible cirrhosis on imaging (CT)-> Follow up with primary GI [facility]. No stigmata on labs.
Moderate left periuterine and periadnexal varices-As per IM.
Plan:
-Advance to Low fat diet
-Follow up with MRI scheduled at [facility] next month.
-Give Miralax now, patient requesting. Recommend bowel regimen as there is stool in right colon and rectum.
-Follow up with [facility] and Dr. Garsia at [facility].
Subjective
Subjective
Date of Service: June 23, 2024
Patient states that she had nausea and dry heaves last evening. Resolved and is tolerating clear liquid diet. Last BM was on Friday. HIDA scan is negative for cystic duct obstruction and there is biliary to bowel transit. Patient is 'sleepy' with
morphine administered from Morphine for HIDA scan. Patient is requesting Miralax. Also discussed with patient about trying to advance diet. She has no pain with liquid, we will see if she is able to advance to low fat diet.
Objective
Data Reviewed
Laboratory Data:
Laboratory Results
06/22/24 09:08
06/22/24 09:08
Laboratory Results
Total Bilirubin 0.7 mg/dl (0.2-1.3) 06/22/24 09:08
AST 25 U/L (14-36) 06/22/24 09:08
ALT 26 U/L (0-35) 06/22/24 09:08
Alkaline Phosphatase 95 U/L (38-126) 06/22/24 09:08
Lipase 133 U/L (23-300) 06/22/24 09:08
Vital Signs and I&O:
Vital Signs
Temp Pulse Resp BP Pulse Ox
97.4 F 57 17 148/66 99
06/23/24 07:45 06/23/24 10:09 06/23/24 07:45 06/23/24 10:09 06/23/24 07:45
I&O
06/22/24 06/23/24 06/24/24
06:59 06:59 06:59
Intake Total 1200 / 1200
Balance 1200 / 1200
Physical Exam
Physical Exam
HEENT: Anicteric
Cardiology: Normal Sinus Rhythm
Pulmonary: Clear
GI: Soft, Non Distended, Tender (mild RUQ tenderness) and Normal Bowel Sounds
Extremities: No Edema
Neuro: Non Focal
[2024-06-23 16:02] VITALS: BP 141/67
[2024-06-23] MEDS: PROTONIX 40 MG PO (16:12)
[2024-06-23] MEDS: MIRALAX 17 GRAMS PO (16:12)
--- NOTE | 2024-06-23 16:43 | CM ---
Alert awake oriented patient who lives alone who lives in a 2 story home with 2 steps to enter and 3 to bed bathroom. She is independent in driving and in all activities of daily living.She has 2 supportive sons
No adaptive devices
Never had VN/SNF
Pharmacy [facility]
PCP Dr Jeong
PLAN will need PT OT for dc planning
[2024-06-23] MEDS: LOVENOX 40 MG SC (17:13)
[2024-06-23] MEDS: NEURONTIN 200 MG PO (21:34)
[2024-06-23] MEDS: CALAN EXTENDED RELEASE 240 MG PO (21:34)
[2024-06-23 22:58] VITALS: BP 105/63
[2024-06-23] MEDS: ULTRAM 100 MG PO (23:02)
[2024-06-24] MEDS: ZOFRAN 4 MG IV (07:15)
[2024-06-24] MEDS: FLUSH (NSS) 2 FLUSH IV (07:16)
[2024-06-24 07:44] VITALS: BP 113/63
[2024-06-24] MEDS: SENOKOT-S 1 TABLET PO (08:15)
[2024-06-24] MEDS: PROTONIX 40 MG PO (08:15)
[2024-06-24 11:28] VITALS: BP 123/86
--- NOTE | 2024-06-24 11:49 | W.PN.HOSP.TC ---
Today's Communication/Plan
-
dc to home
Assessment / Plan
Assessment / Plan
#intractable abdominal pain concern for calculous cholecystitis
#chronic pancreatitis
-CT with the impression of Mild diffuse hepatic steatosis, mild diffuse intrahepatic biliary dilatation, and suspected minimal hepatic cirrhosis.
2. Gallbladder distention without wall thickening or pericholecystic inflammation.
3. Mild diffuse pancreatic ductal dilatation.
4. Multiple bilateral parapelvic renal cysts.
5. Moderate to severe diverticulosis in the sigmoid colon.
6. Moderate-sized cystocele.
7. Mild cardiomegaly.
8. 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
-US of abdomen: New pancreatic ductal dilatation. Etiology unknown. Nonurgent MRCP recommended when the patient is able. The patient is scheduled for a HIDA scan.
Simple bilateral renal cysts. New
-HIDA scan: No evidence for cystic duct or common bile duct obstruction.
-clear liquid diet, advance diet when cleared by GI
-Dilaudid and Zofran prn for pain,nausea
-Gi consulted, has cleared pt for dc
apparently HIDA with CCK not done as inpt and was unable to order. HIDA was done without
#essential HTn
-verapamil continued
#DVT prophylaxis
#CODE status full code
More than 30 minutes spent in discharge including
Final examination of the patient
Summarizing hospital stay
Instructions for continuing care to all relevant caregivers
Preparation of discharge records, prescriptions, and referral forms
Total time spent (in minutes): 45
see dictated
Anticipated Discharge: Today
Subjective/Interval History
-
Date of Service: June 24, 2024
Still with abdominal pain, but somewhat less pronounced
Objective Data
-
Vital Signs:
Vital Signs
Temp Pulse Resp BP Pulse Ox
98.2 F 87 17 123/86 97
06/24/24 11:28 06/24/24 11:28 06/24/24 11:28 06/24/24 11:28 06/24/24 11:28
I&O
06/23/24 06/24/24 06/25/24
06:59 06:59 06:59
Intake Total 1200 / 1200 480 / 480
Balance 1200 / 1200 480 / 480
Review of Systems
-
History Source: Patient and Family (reviewed with son in room)
Constitutional: Denies Fever
Respiratory: Reports No Symptoms
Cardiac: Reports No Symptoms
Abdomen/GI: Reports Abdominal Pain (RUQ, somewhat less intense today)
Physical Exam
-
General: Well Developed, Well Nourished and No Apparent Distress
HEENT: Normocephalic, Atraumatic and Moist Mucous Membranes
Respiratory: Clear to Auscultation; Negative Wheezes, Rales or Rhonchi
Cardiac: Regular Rhythm and S1/S2
GI: Soft and Tender ([place])
Skin: Warm and Dry
Neuro: Awake, Alert and Oriented
--- NOTE | 2024-06-24 14:18 | W.DS.TRANS ---
DC Summary - Insurance Adjuster
-
Discharge Instructions:
Discharge Diagnosis/Procedures Abdominal Pain
Diet Low Fat
Activity No strenuous activity
Driving Restrictions Not until seen by your Dr
Bathing Restrictions None
Instructions:
Stand-Alone Forms:
Changes to Home Medications: Yes
Discharge Medications:
DC Medications w/original date entered in [employer]
cholecalciferol (vitamin D3) 25 mcg (1,000 unit) tablet (Vitamin D3) 25 mcg PO DAILY Supplement 06/22/24
gabapentin 100 mg capsule 200 mg PO HS pain 06/22/24
verapamil 240 mg tablet,extended release 240 mg PO HS Blood Pressure 06/22/24
vitamin B complex 1 tab PO DAILY Supplement 06/22/24
ondansetron HCl 4 mg tablet 4 mg PO Q8H 3 days #9 tabs 06/24/24
pantoprazole 40 mg tablet,delayed release (Protonix) 40 mg PO DAILY #30 tabs 06/24/24
polyethylene glycol 3350 17 gram oral powder packet 17 g PO DAILYPRN PRN constipation #0 ea 06/24/24
Home Medication Changes
Protonix ordered
Zofran prn
Miralax ordered
Pending Results: No
--- NOTE | 2024-06-24 16:11 | CM ---
MD entered order for discharge.
Spoke with pt and son Anupam in room . Anupam will drive her home.
Offered VN she declined need .
IMM reviewed signed on chart.
PLAN Home no needs
== END 2024-06-24 13:41 | disposition home or self-care (01) | DRG 445 ==
LOC: 3 WEST ACU 14:42
PROVIDERS: Emergency Medicine; Physician Assistant Medical; ADMITTING PHYSICIAN Internal Medicine; ATTENDING PHYSICIAN Internal Medicine; EMERGENCY PHYSICIAN Emergency Medicine; FAMILY PHYSICIAN Family Medicine Sports Medicine; OTHER PHYSICIAN Internal Medicine Gastroenterology
DX: K80.10 Calculus of gallbladder with chronic cholecystitis without obstruction (principal); K86.1 Other chronic pancreatitis; N39.0 Urinary tract infection, site not specified; K57.30 Diverticulosis of large intestine without perforation or abscess without bleeding; I10 Essential (primary) hypertension; Z59.89 Other problems related to housing and economic circumstances
CPT/HCPCS: 74177; 76700; 78226; 80053; 81003; 81015; 82962; 83690; 84484; 85025; 87086; 93005; 96374; 96375; 96376; 99285; A9537; Q9967